=== PATIENT | male | born 1955 | race Caucasian/White ===

== ENCOUNTER → 2017-01-04 | Outpatient (CLI) | payer MEDICARE ==
--- NOTE | ~2017-01-04 | US77 ---
[facility] A Service of [facility] [place] [facility] RADIOLOGY TEXT RESULTS PATIENT: MYNOR MELVIN LOCATION: CNIV : 59 UNIT #: [id number] AGE: [address]: Gt Cummings MD SEX: M ORDER DR: [id number] [facility] [address] [place], [place] [address] [id number] O MR#: [id number] Acc #: [id number] NAME: MYNOR MELVIN : 1955 SEX: M STUDY DATE/TIME: 01/04/2017 10:27 UNIT: CNIV ROOM: STUDY DESCRIPTION: US Kidney Bilateral Complete Attending Physician: Benson Cummings M.D. Referring Physician: Benson Cummings M.D. Ordering Physician: Benson Cummings M.D. Primary Care Physician: Nicole Villegas M.D. MEDICAL IMAGING REPORT This report is preliminary unless electronic signature is present EXAM Renal ultrasound 01/04/2017 INDICATIONS Chronic kidney disease stage 3 PROCEDURE Saunders-scale and Doppler imaging kidneys and bladder. COMPARISON None FINDINGS Right kidney measures 11.2 cm. Unremarkable bladder. Left kidney measures 12.5 cm. No hydronephrosis. IMPRESSION Negative renal ultrasound. Dictated by... Bear Newman M.D. THIS IS AN ELECTRONICALLY VERIFIED REPORT Bear Newman M.D. at 01/08/2017 7:22 AM Ruthie TD: 01/04/2017 16:53 JOB #: [id number] MEDICAL IMAGING REPORT Page 1 of 1 COPY
--- NOTE | ~2017-01-04 | US78 ---
[facility] A Service [facility] RADIOLOGY TEXT RESULTS PATIENT: MYNOR MELVIN LOCATION: CNIV : 59 UNIT #: [id number] AGE: [address]: Gt Cummings MD SEX: M ORDER DR: [id number] [facility]. [place], [place] [address] [id number] O MR#: [id number] Acc #: [id number] NAME: MYNOR MELVIN : 1955 SEX: M STUDY DATE/TIME: 01/04/2017 10:35 UNIT: CNIV ROOM: STUDY DESCRIPTION: US Kidney Duplex Complete Attending Physician: Benson Cummings M.D. Referring Physician: Benson Cummings M.D. Ordering Physician: Benson Cummings M.D. Primary Care Physician: Nicole Villegas M.D. MEDICAL IMAGING REPORT This report is preliminary unless electronic signature is present EXAM Duplex renal ultrasound. INDICATION Hypertension, chronic kidney disease stage 3. TECHNIQUE Saunders-scale, color Doppler and Spectral Doppler waveform imaging of the kidneys was performed. COMPARISON No comparisons are available. FINDINGS The study is limited as the origins of the renal arteries are not visualized sonographically. The peak systolic velocity within the renal artery ranges from 88.2 cm/sec to 139.2 cm/sec. There are no findings to suggest significant renal artery stenosis on the left. The intrarenal resistive indices on the left range from 0.54 to 0.73. On the right, the study is limited as well as the origin of the right renal artery is not visualized sonographically. The right renal artery peak systolic velocities range from 70.9 cm/sec to 161.1 cm/sec. The intrarenal resistive indices on the right range from 0.54 to 0.69. IMPRESSION There is no definite significant renal artery stenosis, based on sonographic evaluation, although, the study is limited as the origins of both renal arteries arising off the aorta is not visualized sonographically. [facility] A Service [facility] RADIOLOGY TEXT RESULTS PATIENT: MYNOR MELVIN LOCATION: CNIV : 59 UNIT #: [id number] AGE: [address]: Gt Cummings MD SEX: M ORDER DR: Dictated by... Juan Alvarado M.D. THIS IS AN ELECTRONICALLY VERIFIED REPORT Juan Alvarado M.D. at 01/06/2017 3:46 PM CAIN/gale TD: 01/05/2017 17:11 JOB #: [id number] MEDICAL IMAGING REPORT Page 1 of 1 COPY
== END | disposition home or self-care (01) ==
LOC: CNIV 09:51
DX: I12.9 Hypertensive chronic kidney disease with stage 1 through stage 4 chronic kidney disease, or unspecified chronic kidney disease (principal); N18.3 Chronic kidney disease, stage 3 (moderate)
CPT/HCPCS: 76770; 93975

== ENCOUNTER → 2017-01-11 | Outpatient (CLI) | payer MEDICARE ==
[2017-01-11 09:43] LABS: HEMATOCRIT 46.4 % (38.0-50.0); HEMOGLOBIN 15.4 gm/dL (13.0-16.0); MEAN CELL VOLUME 83.4 FL (83-96); MEAN CORPUSCULAR HEMOGLOBIN 27.7 PG (28-34); MEAN CORPUSCULAR HGB CONC 33.2 g/dL (30-36); MEAN PLATELET VOLUME 8.3 FL (6.5-11.5); RED BLOOD COUNT 5.56 X10e (3.90-5.60); RED CELL DISTRIBUTION WIDTH 13.6 % (11.0-15.5); WHITE BLOOD COUNT 5.8 X10e3 (4.0-10.5)
[2017-01-11 11:07] LABS: ALBUMIN SERUM 4.6 g/dL (3.5-5.0); BILIRUBIN,TOTAL 1.3 mg/dL (0.2-2.0); BUN/CREATININE RATIO 9.33; CREATININE SERUM 1.5 mg/dL (0.6-1.4); GLOM FILT RATE Estimated 50.3 mL/min (>60); POTASSIUM 4.7 mmol/L (3.5-5.1); PROTEIN TOTAL SERUM 7.5 g/dL (6.0-8.3); URIC ACID 6.8 mg/dL (2.6-7.2)
[2017-01-16 00:38] LABS: CALCIUM (PTHINTACT) 9.8 mg/dL (8.6-10.3); HEP C AB (HEPPAN) Nonreactive (Nonreactive); HEP C AB SIGNAL TO CUTOFF 0.05 ratio (<1.00)
== END | disposition home or self-care (01) ==
LOC: CLAB 08:56
PROVIDERS: Internal Medicine Nephrology
DX: N18.3 Chronic kidney disease, stage 3 (moderate) (principal)
CPT/HCPCS: 36415; 80053; 82310; 82550; 83970; 84100; 84550; 85027; 86334; 86803

== ENCOUNTER 2017-01-26 13:45 | Emergency (ER) | payer MEDICARE ==
--- NOTE | ~2017-01-26 | CR151 ---
[facility] A Service of [facility] RADIOLOGY TEXT RESULTS PATIENT: MYNOR MELVIN LOCATION: [place] : 59 UNIT #: [id number] AGE: [address]: Sherie Luevano APRN SEX: M ORDER DR: [id number] [facility] [address] [facility] [place], [place] [address] [id number] E MR#: [id number] Acc #: [id number] NAME: MYNOR MELVIN : 1955 SEX: M STUDY DATE/TIME: 01/26/2017 15:01 UNIT: CFTX ROOM: STUDY DESCRIPTION: CR Hip Min 2 Views Rt Attending Physician: Sherie Luevano A.P.R.N. Ordering Physician: [facility] Primary Care Physician: Nicole Villegas M.D. MEDICAL IMAGING REPORT This report is preliminary unless electronic signature is present EXAM Right hip 2 views HISTORY Right hip pain for 3 days. No recent injury. FINDINGS 2 views of the right hip demonstrate internal fixation of the acetabulum extending from the inferior right ilium to the ischial tuberosity. Mild degenerative changes in the right hip. Hip alignment is satisfactory. No acute fracture or dislocation and no significant change compared to 04/28/2015. IMPRESSION 1. No acute findings. 2. Internal fixation of the right acetabulum is stable compared to 04/28/2015. Stable mild degenerative changes in the right hip. Dictated by... Devendra Rose M.D. THIS IS AN ELECTRONICALLY VERIFIED REPORT Devendra Rose M.D. at 01/27/2017 10:30 PM DFL/pcl TD: 01/26/2017 23:21 JOB #: [id number] MEDICAL IMAGING REPORT Page 1 of 1 COPY
== END 2017-01-26 16:10 | disposition home or self-care (01) ==
LOC: CED 13:45 → CFTX 13:45
DX: M54.31 Sciatica, right side (principal); E11.9 Type 2 diabetes mellitus without complications; I10 Essential (primary) hypertension; Z98.890 Other specified postprocedural states; Z88.8 Allergy status to other drugs, medicaments and biological substances
CPT/HCPCS: 73502; 99283